=== PATIENT | male | born 1975 | race Caucasian/White ===

== ENCOUNTER 2022-01-17 00:40 | Emergency (ER) | payer SELFPAY ==
[~2022-01-17] VITALS: Ht 177.8 cm; Wt 103.4 kg
[2022-01-17 00:47] VITALS: BP 143/83
--- NOTE | 2022-01-17 01:03 | ER.PDOC ---
General Chief Complaint: Flank Pain Stated Complaint: MALE ,BACK PAIN Time seen by MD: 01:01 Source: patient Exam Limitations: no limitations History of Present Illness Initial Comments Right lower back/flank pain status post fall a few days ago. No radiation to lower extremities. No numbness or tingling in lower extremities. No urinary or fecal incontinence. Pain radiates to the right groin. Severity/Quality: moderate Associated Symptoms: lower back pain Allergies: Coded Allergies: chicken derived (Unverified Allergy, Unknown, 05/02/14) Home Meds No Active Prescriptions or Reported Meds Past Medical History Medical History: no pertinent history Surgical History: no surgical history Family History Significant Family History: no pertinent family hx Social History Smoking: non-smoker Alcohol Use: none Drug Use: none Review of Systems Constitutional: no symptoms reported EENTM: no symptoms reported Respiratory: no symptoms reported Cardiovascular: no symptoms reported Gastrointestinal: no symptoms reported Musculoskeletal: see HPI All Other Systems: Reviewed and Negative Physical Exam General Appearance: No Apparent Distress, WD/WN HEENT: PERRL/EOMI, Normal ENT Inspection, TMs Normal, Pharynx Normal Neck: Non-Tender, Normal Alignment Cardiovascular/Respiratory: Regular Rate, Rhythm, No M/R/G, Normal Peripheral Pulses, No JVD, Normal Breath Sounds, No Respiratory Distress Gastrointestinal: Normal Bowel Sounds, No Organomegaly, No Pulsatile Mass, Non Tender, Soft Back: CVA Tenderness (R) Extremities: No Evidence of Injury, Normal Range of Motion, Non-Tender, No Pedal Edema, Pelvis Stable Neuro/Psych: Alert, treasury associate nml/symmetrical, mood/effect nml, No Motor/Sensory Deficits, Relexes nml Skin: Normal Color, Warm/Dry Results/Orders Results/Orders Orders - VLADIMIR RIOS MD Cbc With Auto Diff (01/17/22 00:57) Comprehensive Metabolic Panel (01/17/22 00:57) PT (01/17/22 00:57) Partial Thromboplastin Time. (01/17/22 00:57) Urinalysis (01/17/22 00:57) Ct Abd/Pelvis Wo Iv Contrast (01/17/22 00:57) Urine Culture (01/17/22 01:20) Ketorolac Tromethamine (Toradol) (01/17/22 02:18) Ketorolac Tromethamine (Toradol) (01/17/22 02:25) Vital Signs Date Time Temp Pulse Resp B/P (MAP) Pulse Ox O2 Delivery O2 Flow Rate FiO2 01/17/22 02:14 97.9 69 16 135/78 (97) 96 Room Air* 0 21 01/17/22 00:47 97.9 78 16 143/83 (103) 98 Room Air* 0 21 01/17/22 00:47 97.9 78 16 01/17/22 00:47 97.9 78 16 98 Laboratory Tests Test 01/17/22 01:13 01/17/22 01:20 White Blood Count 7.3 10^3/uL (4.5-11.0) Red Blood Count 4.54 10^6/uL (4.50-5.90) Hemoglobin 13.7 g/dL (13.9-16.3) L Hematocrit 41.2 % (37.0-53.0) Mean Corpuscular Volume 90.7 fL (78-100) Mean Corpuscular Hemoglobin 30.2 pg (26-34) Mean Corpuscular Hemoglobin Concent 33.3 g/dL (33-36.5) Red Cell Distribution Width 12.7 % (11.5-14.5) Platelet Count 217 10^3/uL (150-400) Mean Platelet Volume 9.0 fL (7.8-11.0) Neutrophils (%) (Auto) 50.0 % (41.0-85.0) Lymphocytes (%) (Auto) 33.6 % (24.0-44.0) Monocytes (%) (Auto) 8.6 % (5.0-12.0) Neutrophils # (Auto) 3.7 10^3/uL (1.8-7.7) Lymphocytes # (Auto) 2.45 10^3/uL1 (1.0-4.8) Monocytes # (Auto) 0.6 10^3/uL (0.3-0.8) Absolute Immature Granulocyte (auto 0 10^3 u/L (0-2) Absolute Eosinophils (auto) 0.5 10^3/uL (0.0-0.2) H Immature Granulocytes % 0.00 % (0.00-0.50) Eosinophils % 7.4 % (0.0-5.0) H Basophils % 0.4 % (0.0-0.2) H Basophils # 0.0 10^3/uL (0.0-0.1) Prothrombin Time 9.6 SEC (9.1-11.5) Prothrombin Time INR (Non-Therap) 0.9 Activated Partial Thromboplast Time 25.7 SEC (22.5-33.1) Sodium Level 139 mmol/L (132-145) Potassium Level 4.1 mmol/L (3.6-5.2) Chloride Level 104.0 mmol/L (96-109) Carbon Dioxide Level 28.2 mmol/L (20.0-32) Anion Gap 10.9 Blood Urea Nitrogen 13 mg/dL (7-18) Creatinine 1.00 mg/dL (0.59-1.40) Estimated GFR () 96.9 (>/=60) Est GFR (CKD-EPI)(Non-Afr Cambodian) 80.1 (>/=60) BUN/Creatinine Ratio 13.0 Glucose Level 109 mg/dL (70-110) Calcium Level 9.2 mg/dL (8.4-10.5) Total Bilirubin 0.3 mg/dL (0.2-1.0) Aspartate Amino Transferase (AST) 12 U/L (0-35) Alanine Aminotransferase (ALT) 27 U/L (12-78) Alkaline Phosphatase 82 U/L (50-136) Total Protein 7.2 g/dL (6.4-8.2) Albumin 3.7 g/dL (3.4-5.0) Globulin 3.5 Albumin/Globulin Ratio 1.057 Urine Collection Type RANDOM Urine Color YELLOW Urine Appearance CLEAR Urine Bilirubin NEGATIVE (NEGATIVE) Urine Ketones NEGATIVE (NEGATIVE) Urine Specific [place] >=1.030 (1.005-1.030) Urine pH 5.5 (4.5-8.0) Urine Protein TRACE (NEGATIVE) Urine Urobilinogen 0.2 E.U./dL (0.2) Urine Nitrate NEGATIVE (NEGATIVE) Urine Leukocyte Esterase NEGATIVE (NEGATIVE) Urine Glucose (Auto)(UA) NEGATIVE (NEGATIVE) Urine Blood 2+ (NEGATIVE) H Urine RBC 2-5 RBC/HPF (NONE SEEN) Urine WBC 2-5 WBC/HPF (0-2) Urine Bacteria FEW (NONE SEEN) H Progress Progress CT abdomen/pelvis: No evidence of acute bony fracture in the included portions of the spine or in the pelvis or hip regions. 2. 3 mm calculus in the right ureterovesical junction causing mild right hydroureter. Recommend clinical correlation as to whether this may be the cause the patient's presenting symptoms. 3. Colonic diverticulosis without diverticulitis. Chemistry is normal, urinalysis show blood in urine, WBCs 2-5 and few bacteria,. CBC is unremarkable. Patient received a Toradol shot and Flomax. He is feeling better. ER DEPART Departure Time of Disposition: 02:37 Disposition: 01 HOME / SELF CARE / HOMELESS Impression: Primary Impression: Ureteral calculus, right Additional Impressions: Low back pain Renal colic on right side UTI (urinary tract infection) Condition: Improved Referrals: PCP,UNKNOWN (PCP) PRIMARY CARE PROVIDER Additional Instructions: Tramadol Bactrim DS Flomax Follow-up with Dr. Rosales in 2 to 3 days if no improvement Return to ED if worsening or concerns Scripts No Active Prescriptions or Reported Meds Duration or Time Spent with Pa: 45 min Problem Qualifiers Additional Impressions: Low back pain Chronicity: acute Back pain laterality: right Sciatica presence: without sciatica Qualified Codes: M54.50 - Low back pain, unspecified UTI (urinary tract infection) Urinary tract infection type: site unspecified Hematuria presence: with hematuria Qualified Codes: N39.0 - Urinary tract infection, site not specified; R31.9 - Hematuria, unspecified VLADIMIR RIOS MD Jan 17, 2022 01:03
[2022-01-17 01:16] LABS: BASOPHIL % 0.4 % (0.0-0.2); EOSINOPHIL # 0.5 10^3/uL (0.0-0.2); EOSINOPHIL % 7.4 % (0.0-5.0); LYMPHOCYTES # 2.45 10^3/uL1 (1.0-4.8); LYMPHOCYTES % 33.6 % (24.0-44.0); MEAN CORP HGB 30.2 pg (26-34); MONOCYTES # 0.6 10^3/uL (0.3-0.8); MONOCYTES % 8.6 % (5.0-12.0); NEUTROPHIL # 3.7 10^3/uL (1.8-7.7); PLATELET COUNT 217 10^3/uL (150-400); RED CELL DISTRIBUTION WIDTH 12.7 % (11.5-14.5)
[2022-01-17 01:26] LABS: BILIRUBIN,URINE NEGATIVE (NEGATIVE); UROBILINOGEN,URINE 0.2 E.U./dL (0.2)
[2022-01-17 01:33] LABS: CARBON DIOXIDE 28.2 mmol/L (20.0-32)
[2022-01-17 02:14] VITALS: BP 135/78
[2022-01-17] MEDS ORDERED: TORADOL IM STA (02:18)
--- NOTE | 2022-01-17 02:21 | DIREP ---
PROCEDURE:CT ABDOMEN/PELVIS W/O CONTRAST COMPARISON:None. INDICATIONS:Right lower back pain S/P fall TECHNIQUE:Axial images were created through the abdomen and pelvis without intravenous contrast material. No oral contrast was administered. Sagittal and coronal reconstructions were performed from source images. FINDINGS: LUNG BASES:Normal. No visible pulmonary or pleural disease. LIVER:Normal. No significant liver lesions are identified. BILIARY:Normal. No visible dilatation or calcification. PANCREAS:Normal. No lesion, fluid collection, ductal dilatation, or atrophy. SPLEEN:Normal. No enlargement or focal lesion. ADRENALS:Normal. No mass or enlargement. URINARY TRACT:Mild dilatation of the right ureter. 3 mm calculus at the right ureterovesical junction. No evidence of calcification in either kidney. Left ureter is normal. AORTA/VASCULAR:Normal. No aneurysm. RETROPERITONEUM:Normal. No mass or adenopathy. BOWEL/MESENTERY:Somewhat limited evaluation due to lack of oral or IV contrast. No intestinal obstruction, free air, free fluid, or mesenteric inflammation. The appendix is normal. Multiple colonic diverticula without diverticulitis. ABDOMINAL WALL:Normal. No mass or hernia. PELVIC ORGANS:Normal. No visible mass. Pelvic organs appropriate for patient age. BONES:No fracture. [id number] thoracolumbar spondylosis. OTHER:Negative. CONCLUSION: 1. No evidence of acute bony fracture in the included portions of the spine or in the pelvis or hip regions. 2. 3 mm calculus in the right ureterovesical junction causing mild right hydroureter. Recommend clinical correlation as to whether this may be the cause the patient's presenting symptoms. 3. Colonic diverticulosis without diverticulitis. Dictated by: Inocente Contreras M.D. on 01/17/2022 at 02:16 AM
[2022-01-17] MEDS ORDERED: TORADOL ONE (02:25)
[2022-01-17] MEDS ORDERED: FLOMAX PO STA (02:34)
[2022-01-17] MEDS ORDERED: FLOMAX ONE (02:35)
[2022-01-17] MEDS ORDERED: ZOFRAN ODT SL STA (02:46)
[2022-01-17] MEDS ORDERED: ZOFRAN ODT ONE (02:47)
== END 2022-01-17 02:52 | disposition home or self-care (01) ==
LOC: ER 00:40
DX: M54.50 Low back pain, unspecified (principal); N39.0 Urinary tract infection, site not specified; N20.1 Calculus of ureter; R31.9 Hematuria, unspecified
CPT/HCPCS: 99284; 74176; 96372; 87086; 80053; 85025; 36415; 81001; 85610; 85730; J1885

== ENCOUNTER 2022-08-06 16:39 | Emergency (ER) | payer SELFPAY ==
[~2022-08-06] VITALS: Ht 177.8 cm; Wt 99.8 kg
[2022-08-06 16:39] VITALS: BP 156/98
[2022-08-06] MEDS ORDERED: ROCEPHIN IM STA (18:07)
[2022-08-06] MEDS ORDERED: DECADRON IM STA (18:07)
[2022-08-06] MEDS ORDERED: ROCEPHIN ONE (18:17)
[2022-08-06] MEDS ORDERED: DECADRON ONE (18:17)
--- NOTE | 2022-08-06 18:17 | ER.PDOC ---
General Chief Complaint: Sore Throat Stated Complaint: DIFFICULTY SWALLOWING Time seen by MD: 18:10 Source: patient Exam Limitations: no limitations History of Present Illness Initial Comments Sore throat and difficulty swallowing for 4 days. No fever or chills. He has a mild cough. Timing/Duration: gradual Associated Symptoms: mod sore throat, cough (mild) Severity: moderate Allergies: Coded Allergies: chicken derived (Unverified Allergy, Unknown, 05/02/14) Home Meds No Active Prescriptions or Reported Meds Past Medical History Medical History: no pertinent history Surgical History: no surgical history Family History Significant Family History: no pertinent family hx Social History Smoking: non-smoker Alcohol Use: none Drug Use: none Constitutional: no symptoms reported Throat: see HPI Respiratory: see HPI Cardiovascular: no symptoms reported Gastrointestinal: no symptoms reported Musculoskeletal: no symptoms reported All Other Systems: Reviewed and Negative Physical Exam General Appearance: alert, no distress Head/Neck: head nml inspection, neck nml inspection, trachea midline, thyroid nml, cervical lymphadenopathy Mouth: widespread dental decay Throat: pharyngeal erythema, tonsillar exudate Respiratory: no resp. distress, lungs clear CVS: reg. rate & rhythm, heart sounds nml Abdomen: non-tender, no organomegaly Extremities: non-tender, ROM nml Skin Exam: Normal Color, Warm/Dry NEURO/PSYCH: oriented X3, mood/effect nml Results/Orders Results/Orders Orders - VLADIMIR RIOS MD Ceftriaxone Sodium (Rocephin) (08/06/22 18:07) Dexamethasone Sodium Phosp/Pf (Decadron) (08/06/22 18:07) Vital Signs Date Time Temp Pulse Resp B/P (MAP) Pulse Ox O2 Delivery O2 Flow Rate FiO2 08/06/22 16:39 98.4 112 18 156/98 (117) 95 Room Air* 0 21 08/06/22 16:39 98.4 112 18 95 08/06/22 16:39 98.4 112 18 Progress Progress Patient treated with antibiotics based on [facility] criteria. Patient refused COVID test. He received Rocephin and Decadron. ER DEPART Departure Time of Disposition: 18:16 Disposition: 01 HOME / SELF CARE / HOMELESS Impression: Primary Impression: Acute tonsillitis Qualified Codes: J03.90 - Acute tonsillitis, unspecified Additional Impressions: Acute pharyngitis Qualified Codes: J02.9 - Acute pharyngitis, unspecified URI, acute Dental caries Condition: Improved Referrals: PCP,UNKNOWN (PCP) PRIMARY CARE PROVIDER Additional Instructions: Amoxil Prednisone Tylenol Follow-up with your PCP in 3 to 5 days Return to ED if worsening or concerns Scripts No Active Prescriptions or Reported Meds Duration or Time Spent with Pa: 10 min VLADIMIR RIOS MD Aug 06, 2022 18:17
== END 2022-08-06 18:28 | disposition home or self-care (01) ==
LOC: ER 16:39
DX: J03.90 Acute tonsillitis, unspecified (principal); K02.9 Dental caries, unspecified; R13.10 Dysphagia, unspecified
CPT/HCPCS: 99283; 96372; 82948; J1100; J0696

== ENCOUNTER 2023-12-20 13:54 | Emergency (ER) | payer SELFPAY ==
[~2023-12-20] VITALS: Ht 177.8 cm; Wt 102.1 kg
[2023-12-20 13:54] VITALS: BP 168/100; PULSE 89; RESP 18; TEMP 98.6; O2SAT 97
[2023-12-20 15:00] VITALS: BP 145/98; PULSE 80; RESP 18; TEMP 98.6; O2SAT 97
[2023-12-20] MEDS ORDERED: LIDOCAINE 1% VIAL ONE (15:27)
[2023-12-20] MEDS ORDERED: ROCEPHIN ONE (15:27)
[2023-12-20] MEDS: ROCEPHIN IM STA (15:30)
[2023-12-20] MEDS ORDERED: DICL75TA2 PO (15:34)
[2023-12-20] MEDS ORDERED: AMOX500T PO ×2 (15:34→15:35)
== END 2023-12-20 15:40 | disposition home or self-care (01) ==
LOC: ER 13:54
DX: K02.9 Dental caries, unspecified (principal); K04.7 Periapical abscess without sinus
CPT/HCPCS: 99283; 96372; J2001; J0696